=== PATIENT | female | born 1990 | race Caucasian/White ===

== ENCOUNTER → 2021-02-19 01:08 | Outpatient (CLI) | payer MEDICAID, SELFPAY ==
[2021-02-20 20:10] LABS: SARS-CoV-2 RNA PCR Negative
== END ==
PROVIDERS: PCP Nurse Practitioner Family; Visit Provider Nurse Practitioner Family
DX: R68.89 Other general symptoms and signs (principal); Z20.822 Contact with and (suspected) exposure to COVID-19
CPT/HCPCS: C9803; U0003; U0005

== ENCOUNTER 2021-09-12 10:36 | Outpatient (CLI) | payer MEDICAID, SELFPAY ==
[2021-09-12 11:21] LABS: Basophils Absolute Auto 0.1 K/mm3 (0.0-0.1); Basophils Percent Auto 1.1 % (0.2-1.2); Eosinophils Absolute Auto 0.1 K/mm3 (0-0.3); Eosinophils Percent Auto 1.4 % (0-4.4); Hematocrit 35.3 % (37.0-47.0); Hemoglobin 11.5 g/dL (12.0-15.0); Immature Granulocyte Absolute 0.02 K/mm3 (0.00-0.031); Immature Granulocyte Percent A 0.5 % (0-0.5); Lymphocytes Absolute Auto 1.93 K/mm3 (0.9-3.2); Lymphocytes Percent Auto 43.8 % (18.3-44.2); Mean Corpuscular HGB Conc 32.6 g/dl (32-36); Mean Corpuscular Hemoglobin 29.9 pg (26-34); Mean Corpuscular Volume 91.9 fl (80-100); Mean Platelet Volume 10.7 fl (7.4-10.4); Monocytes Absolute Auto 0.3 K/mm3 (0.1-0.6); Monocytes Percent Auto 7.3 % (2.6-8.5); Neutrophils Percent Auto 45.9 % (45.5-73.1); Platelet Count Result 270 k/mm3 (150-375); Red Blood Count 3.84 M/mm3 (4.2-5.4); Red Cell Distribution Width 12.2 % (11.5-14.5); White Blood Count 4.4 K/mm3 (4.5-10.0)
[2021-09-12 11:49] LABS: Beta HCG Quantitative < 2.39 mIU/ML
[2021-09-16 15:28] LABS: FSH 8.3 mIU/mL (***); Progesterone 0.5 ng/mL (***); Prolactin 5.9 ng/mL (***)
[2021-09-24 07:27] LABS: Estradiol, Ultrasensitive 69 pg/mL
== END 2021-09-12 10:37 | disposition home or self-care (01) ==
LOC: ANHLAB 10:38
PROVIDERS: PCP Nurse Practitioner Family; Visit Provider Obstetrics & Gynecology
DX: N93.9 Abnormal uterine and vaginal bleeding, unspecified (principal)
CPT/HCPCS: 36415; 82670; 83001; 84144; 84146; 84702; 85025

== ENCOUNTER 2024-01-06 09:34 | Outpatient (CLI) | payer BC, SELFPAY ==
[2024-01-06 10:22] LABS: Beta HCG Quantitative < 2.39 mIU/ML
== END 2024-01-06 09:35 | disposition home or self-care (01) ==
PROVIDERS: PCP Nurse Practitioner Family; Visit Provider Obstetrics & Gynecology
DX: Z30.430 Encounter for insertion of intrauterine contraceptive device (principal)
CPT/HCPCS: 36415; 84702